=== PATIENT | male | born 1955 | race Caucasian/White ===

== ENCOUNTER → 2021-04-10 14:15 | Outpatient (CLI) | payer MEDICARE, SELFPAY ==
[2021-04-10 16:11] LABS: Prostate Specific Antigen Scrn 1.54 ng/mL (0.1-4.0)
== END ==
PROVIDERS: PCP Student in an Organized Health Care Education/Training Program; Referring Provider Student in an Organized Health Care Education/Training Program; Visit Provider Student in an Organized Health Care Education/Training Program
DX: Z12.5 Encounter for screening for malignant neoplasm of prostate (principal)
CPT/HCPCS: 36415; G0103

== ENCOUNTER → 2022-07-29 16:00 | Outpatient (CLI) | payer MEDICARE, SELFPAY ==
--- NOTE | 2022-07-29 16:01 | DI.RAD.S_ITS ---
PROCEDURE: XR KNEE LT 3V INDICATIONS: Bilateral knee pain TECHNIQUE: 3 views of the knee were acquired. COMPARISON: None. FINDINGS: Bones: No fractures or dislocations. No suspicious bony lesions. Mild tricompartmental joint space narrowing. Patellofemoral compartment spurring also present. Soft tissues: No joint effusion. No suspicious soft tissue calcifications. IMPRESSION: No acute osseous abnormality. If symptoms persist, follow-up radiographs and/or CT or MRI may be helpful for further evaluation. Degenerative changes of the knee are present. Dictated by: Rosas Canada M.D. on 07/29/2022 at 18:34 Approved by: Rosas Canada M.D. on 07/29/2022 at 18:35
--- NOTE | 2022-07-29 16:01 | DI.RAD.S_ITS ---
PROCEDURE: XR KNEE RT 3V INDICATIONS: Bilateral knee pain TECHNIQUE: 3 views of the knee were acquired. COMPARISON: None. FINDINGS: Bones: No fractures or dislocations. No suspicious bony lesions. Mild tricompartmental joint space narrowing. Patellofemoral spurring present. Soft tissues: No joint effusion. No suspicious soft tissue calcifications. IMPRESSION: No acute osseous abnormality. If symptoms persist, follow-up radiographs and/or CT or MRI may be helpful for further evaluation. Degenerative changes of the knee are present. Dictated by: Rosas Canada M.D. on 07/29/2022 at 18:36 Approved by: Rosas Canada M.D. on 07/29/2022 at 18:37
== END ==
PROVIDERS: PCP Student in an Organized Health Care Education/Training Program; Referring Provider Student in an Organized Health Care Education/Training Program; Visit Provider Student in an Organized Health Care Education/Training Program
DX: M25.561 Pain in right knee (principal); M25.562 Pain in left knee
CPT/HCPCS: 73562

== ENCOUNTER 2022-08-13 19:43 | Emergency (ER) | payer MEDICARE, SELFPAY ==
[2022-08-13 20:01] VITALS: BP 160/71; PULSE 63; RESP 12; TEMP 36.9; O2SAT 100; BMI 21.7
--- NOTE | 2022-08-13 20:11 | DI.CT.S_ITS ---
PROCEDURE: CT HEAD/BRAIN WO CON INDICATIONS: confusion, possible fall doesn't recall event TECHNIQUE: Noncontrast 4.5 mm thick angled axial sections acquired from the foramen magnum to the vertex, with coronal and sagittal reformats. For radiation dose reduction, the following was used: automated exposure control, adjustment of mA and/or kV according to patient size. COMPARISON: None. FINDINGS: Image quality: Excellent. CSF spaces: Basal cisterns are patent. No extra-axial fluid collections. Ventricles are normal in size and shape. Brain: No intracranial hemorrhage, mass, or mass effect. Carvajal-white matter interface appears preserved. Skull and face: Calvarium and visualized facial bones are intact, without suspicious lesions. Sinuses: Visualized sinuses and mastoids are clear. IMPRESSION: 1. No acute intracranial abnormality. Dictated by: Aldo Banerjee M.D. on 08/13/2022 at 21:05 Approved by: Aldo Banerjee M.D. on 08/13/2022 at 21:06
--- NOTE | 2022-08-13 20:11 | DI.CT.S_ITS ---
PROCEDURE: CT CERVICAL SPINE WO CON INDICATIONS: confusion, possible fall doesn't recall event TECHNIQUE: Noncontrast 3 mm thick sections acquired from the skull base to the T4 level. Sagittal and coronal reformats were then constructed. For radiation dose reduction, the following was used: automated exposure control, adjustment of mA and/or kV according to patient size. COMPARISON: None. FINDINGS: Image quality: Excellent. Bones: No fractures or subluxation. There is straightening of the cervical lordosis. Minimal anterolisthesis demonstrated at C7-T1. Multilevel degenerative disc disease and facet joint arthropathy are present. Visualized superior ribs are intact. Soft tissues: Prevertebral soft tissues are normal in thickness. No paravertebral hematomas. No apical pneumothoraces. IMPRESSION: 1. No acute fracture or subluxation. Dictated by: Aldo Banerjee M.D. on 08/13/2022 at 21:06 Approved by: Aldo Banerjee M.D. on 08/13/2022 at 21:08
--- NOTE | 2022-08-13 20:38 | ED_ITS ---
HPI - Fall General Chief Complaint: Fall Stated Complaint: GLF/nt remembering/nt recall/sml lesh [facility] of [facility] Time Seen by Provider: 08/13/22 20:36 Source: patient and family Mode of arrival: Family Vehicle History of Present Illness HPI Narrative: Patient is a 67-year-old male who is here with his for evaluation of was apparently a head injury that occurred at home. Patient's states that he went outside. He was gone outside for less than 30 minutes and when he came back inside he went over and sat on his couch. She thought that he was acting somewhat strange and she went to talk with him. He seemed to have forgotten what had happened to him. He was also having some recall issues with even simple things like what day it was and who was the president. He would an abrasion on the back of his head. He can not specifically recall what happened to him. They called a friend over who was a retired physician who recommended that he come to the emergency department. During the right here to the ER the patient's states that he is starting to remember more things. He still can not remember the event. He is no specific injuries. No neck pain. No extremity injuries. He does not remember what has happened to him. He is not on blood thinners. Related Data Home Medications Medication Instructions Recorded Confirmed [OCUVITE] 2 tab PO QDAY ##0 07/29/22 Allergies Allergy/AdvReac Type Severity Reaction Status Date / Time No Known Drug Allergies Allergy Verified 08/13/22 20:08 Review of Systems Review of Systems ROS Unobtainable: All systems reviewed & are unremarkable except as noted in HPI and below Patient History Medical History Acne (~1969) Cataract (~2018) Elbow fracture, right (~1969) Surgical History (Updated 07/22/17 @ 06:14 by Hellen Velázquez PA-C) History of tonsillectomy Family History (Updated 04/16/21 @ 06:59 by Cathleen Hendrix) Father History of diabetes mellitus Mother No problems noted. Social History Smoking Status: Former smoker Smoking Status: Former smoker alcohol intake frequency: a few times a week Substance Use Type: does not use Exam Initial Vital Signs Initial Vital Signs: Vital Signs Temperature 98.4 F 08/13/22 20:01 Pulse Rate 63 08/13/22 20:01 Respiratory Rate 12 08/13/22 20:01 Blood Pressure 160/71 H 08/13/22 20:01 Pulse Oximetry 100 08/13/22 20:01 Oxygen Delivery Method Room Air 08/13/22 20:01 Const General: cooperative, comfortable and No ill appearing HENMT Head: abrasion (Occipital portion of scalp) and No laceration Eyes General: Yes appearance normal, both eyes and all related structures Resp Effort & Inspection: normal respiratory effort Auscultation: clear to auscultation bilaterally Cardio Rate: regular rate Rhythm: regular rhythm GI Inspection: normal to inspection and non-distended Skin Other: Abrasion/contusion on the occipital portion of his scalp. Neuro Cognition: normal cognition Speech: speech normal Other: Here in the emergency department the patient is alert to person and place. He knows the year. He also knows the president but he does not know what has happened to him Extrem Other: Pelvis is stable. Patient is ambulatory. No upper lower extremity discomfort. Course Orders Ordered: ED Orders 08/13/22 20:11 CT cervical spine wo con Stat CT head/brain wo con Stat Vital Signs Vital signs: Vital Signs - 8 hr 08/13/22 20:01 08/13/22 20:54 08/13/22 21:00 Temperature 98.4 F Pulse Rate 63 54 L Respiratory Rate 12 19 Blood Pressure 160/71 H 145/70 H Pulse Oximetry 100 99 Oxygen Delivery Method Room Air Room Air 08/13/22 21:00 08/13/22 21:30 08/13/22 21:30 Temperature Pulse Rate 52 L 54 L Respiratory Rate 18 19 Blood Pressure 145/71 H Pulse Oximetry 100 100 Oxygen Delivery Method Room Air MDM - Fall Imaging Data CT - cervical spine: Radiologist's Impression: PROCEDURE:? CT CERVICAL SPINE WO CON ? INDICATIONS:? confusion, possible fall doesn't recall event ? TECHNIQUE:? Noncontrast 3 mm thick sections acquired from the skull base to the T4 level.? Sagittal and coronal reformats were then constructed.? For radiation dose reduction, the following was used:? automated exposure control, adjustment of mA and/or kV according to patient size.? ? COMPARISON:? None. ? FINDINGS:? Image quality:? Excellent.? ? Bones:? No fractures or subluxation.? There is straightening of the cervical lordosis.? Minimal anterolisthesis demonstrated at C7-T1.? Multilevel degenerative disc disease and facet joint arthropathy are present.? Visualized superior ribs are intact.? ? Soft tissues:? Prevertebral soft tissues are normal in thickness.? No paravertebral hematomas.? No apical pneumothoraces.? ? ? IMPRESSION:? ? 1. No acute fracture or subluxation. CT scan - head: Radiologist's Impression: PROCEDURE:? CT HEAD/BRAIN WO CON ? INDICATIONS:? confusion, possible fall doesn't recall event ? TECHNIQUE:? Noncontrast 4.5 mm thick angled axial sections acquired from the foramen magnum to the vertex, with coronal and sagittal reformats.? For radiation dose reduction, the following was used:? automated exposure control, adjustment of mA and/or kV according to patient size.? ? COMPARISON:? None. ? FINDINGS:? Image quality:? Excellent.? ? CSF spaces:? Basal cisterns are patent.? No extra-axial fluid collections.? Ventricles are normal in size and shape.? ? Brain:? No intracranial hemorrhage, mass, or mass effect.? Carvajal-white matter interface appears preserved.? ? Skull and face:? Calvarium and visualized facial bones are intact, without suspicious lesions.? ? Sinuses:? Visualized sinuses and mastoids are clear.? ? IMPRESSION:? ? 1. No acute intracranial abnormality.? MDM Narrative Medical decision making narrative: Patient obviously has hit his head. His head CT and cervical spine CT are unremarkable. The contusion on the back of his head needs those specific intervention here in the emergency department. We are unsure of the situations as to what brought him here to the ER. He is obviously having some memory issues but things seemed to be returning to him per his who is at bedside. Reports no other injuries from the event. His physical exam and history is consistent with a concussion. I did discuss this with the patient and his . We discussed his restrictions on activities. We discussed specific return precautions and follow-up instructions. Both he and his expressed understanding and agreement with plan. Discharge Plan Departure Patient Disposition: Home Clinical Impression: Concussion, Contusion of scalp Instructions: DI for Concussion Activity Restrictions/Additional Instructions: You can eat like normal and sleep like normal. Continue to take all of your medications as directed. Contact your primary doctor for follow-up. Return to the emergency department for new or worsening symptoms. Prescriptions: No Action [OCUVITE] 2 tab PO QDAY Qty: 0 Referrals: Milton Stuart MD [Primary Care Provider] - Stand Alone Forms: Patient Portal/API
[2022-08-13 20:54] VITALS: PULSE 54; RESP 19; O2SAT 99
[2022-08-13 21:00] VITALS: BP 145/70; PULSE 52; RESP 18; O2SAT 100
[2022-08-13 21:30] VITALS: BP 145/71; PULSE 54; RESP 19; O2SAT 100
== END 2022-08-13 21:45 | disposition home or self-care (01) ==
PROVIDERS: Emergency Provider Emergency Medicine; PCP Student in an Organized Health Care Education/Training Program
DX: S06.0X0A Concussion without loss of consciousness, initial encounter (principal); W22.8XXA Striking against or struck by other objects, initial encounter
CPT/HCPCS: 70450; 72125; 99281; 99284

== ENCOUNTER → 2024-03-05 08:06 | Outpatient (CLI) | payer MEDICARE, SELFPAY ==
[2024-03-05 08:27] LABS: Add Manual Diff / Slide Review NO; Basophils Absolute Auto 100 /uL (0-100); Basophils Percent Auto 1.2 % (0-2); Eosinophils Absolute Auto 300 /uL (0-450); Eosinophils Percent Auto 6.7 % (2-4); Hematocrit 41.7 % (41-53); Hemoglobin 13.9 g/dL (13.5-17.5); Lymphocytes Absolute Auto 1600 /uL (1100-4500); Lymphocytes Percent Auto 34.9 % (25-40); Mean Corpuscular HGB Conc 33.3 % (30-36); Mean Corpuscular Volume 87.3 fL (80-100); Monocytes Absolute Auto 300 /uL (0-900); Monocytes Percent Auto 7.4 % (3-14); Neutrophils Absolute Auto 2300 /uL (1500-7000); Neutrophils Percent Auto 49.8 % (50-75); Platelet Count 184 X10^3/uL (150-400); Red Blood Cell Count 4.78 X10^6/uL (4.5-5.9); Red Cell Distribution Width 14.5 % (11.6-14.8); White Blood Cell Count 4.7 X10^3/uL (4.5-11.0)
[2024-03-05 08:56] LABS: Alanine Aminotransferase 19 IU/L (<50); Albumin 4.3 g/dL (3.5-5.0); Albumin Globulin Ratio 1.7 (1.0-2.8); Alkaline Phosphatase 84 U/L (38-126); Aspartate Aminotransferase 28 IU/L (17-59); BUN Creatinine Ratio 17.3 (6-22); Bilirubin Total 0.8 mg/dL (0.2-1.3); Blood Urea Nitrogen 18 mg/dL (9-20); Calcium 9.3 mg/dL (8.4-10.2); Carbon Dioxide 28 mmol/L (22-32); Chloride 103 mmol/L (98-107); Cholesterol 245 mg/dL (140-199); Estimated Glomerular Filt Rate > 60 mL/min (>60); Globulin 2.6 g/dL (1.7-4.1); Glucose 98 mg/dL (80-110); HDL Cholesterol 103 mg/dL (40-60); HEMOLYSIS < 15 (0-50); LDL Cholesterol Calculated 127 mg/dL (<100); Potassium 4.4 mmol/L (3.4-5.1); Sodium 137 mmol/L (137-145); Total Protein 6.9 g/dL (6.3-8.2); Triglycerides 77 mg/dL (35-150)
[2024-03-05 09:27] LABS: Prostate Specific Antigen Scrn 1.75 ng/mL (0.1-4.0)
== END ==
PROVIDERS: PCP Family Medicine; Referring Provider Family Medicine; Visit Provider Family Medicine
DX: Z00.00 Encounter for general adult medical examination without abnormal findings (principal); Z12.5 Encounter for screening for malignant neoplasm of prostate
CPT/HCPCS: 36415; 80053; 80061; 85025; G0103

== ENCOUNTER → 2025-03-10 14:14 | Outpatient (CLI) | payer MEDICARE, SELFPAY ==
[2025-03-10 15:17] LABS: Add Manual Diff / Slide Review NO; Hematocrit 41.5 % (41-53); Hemoglobin 14.1 g/dL (13.5-17.5); Lymphocytes Absolute Auto 1600 /uL (1100-4500); Mean Corpuscular HGB Conc 34.0 % (30-36); Mean Corpuscular Hemoglobin 29.2 PG (26-34); Mean Corpuscular Volume 85.9 fL (80-100); Platelet Count 199 X10^3/uL (150-400)
[2025-03-10 15:33] LABS: Alanine Aminotransferase 16 IU/L (<50); Albumin 4.8 g/dL (3.5-5.0); Albumin Globulin Ratio 1.7 (1.0-2.8); Alkaline Phosphatase 80 U/L (38-126); Blood Urea Nitrogen 17 mg/dL (9-20); Calcium 9.6 mg/dL (8.4-10.2); Carbon Dioxide 26 mmol/L (22-32); Chloride 102 mmol/L (98-107); Cholesterol 248 mg/dL (140-199); Estimated Glomerular Filt Rate > 60 mL/min (>60); Globulin 2.8 g/dL (1.7-4.1); Glucose 90 mg/dL (70-99); HDL Cholesterol 98 mg/dL (40-60); HEMOLYSIS < 15 (0-50); Potassium 4.3 mmol/L (3.4-5.1); Sodium 138 mmol/L (137-145); Total Protein 7.6 g/dL (6.3-8.2); Triglycerides 108 mg/dL (35-150)
[2025-03-10 16:04] LABS: TSH w/ Reflex to FT4 3.61 uIU/mL (0.47-4.68)
== END ==
PROVIDERS: PCP Family Medicine; Referring Provider Family Medicine; Visit Provider Family Medicine
DX: Z00.00 Encounter for general adult medical examination without abnormal findings (principal); Z12.5 Encounter for screening for malignant neoplasm of prostate; E78.5 Hyperlipidemia, unspecified
CPT/HCPCS: 36415; 80053; 80061; 84443; 85025; G0103